=== PATIENT | male | born 1950 | race Caucasian/White ===

== ENCOUNTER → 2018-10-26 15:43 | Outpatient (CLI) | payer MEDICARE, OTHER, SELFPAY ==
--- NOTE | 2018-10-26 10:02 | COLBX_PTH ---
PATIENT: ALCON OSWALD LOC: [facility] U#:[id number] AGE/SX: 74/M ROOM: RE10/26/[address]: Dr. Marky Medina MD : 1950 BED: DIS: SPEC #: [id number] RECD: 10/26/18 15:22 STATUS: CHAYITO BAUTISTA #: [id number] BUFFY: 10/26/18 10:[address]: Marky Medina DEPT: SURGICAL PATHOLOGY RECD BY: Jack Hayden ENTERED: 10/29/18 10:19 SP TYPE: COLON BX OTHR DR: No Primary Care Phys [facility] Tissues: Sigmoid colon biopsy Procedures: Surgery Specimen Level IV HEADER OPERATION: Colonoscopy with polypectomy PRE-OP DIAGNOSIS: Screening TISSUE SUBMITTED: Sigmoid polyp, rule out adenoma MICROSCOPIC DIAGNOSIS Sigmoid polyp, polypectomy: Hyperplastic polyp. SJ:santiago 10/30/18 MICROSCOPIC DESCRIPTION Slides are reviewed. GROSS DESCRIPTION Received in fixative is one container labeled with the patient's name and designated sigmoid polyp. The specimen consists of multiple irregular fragments of light faustin soft tissue that in aggregate measure 1 x 0.5 x 0.1 cm. The specimen is totally submitted in one cassette. / SJ:santiago 10/29/18 TC:1 CPT: 09933
== END ==
PROVIDERS: Referring Provider Internal Medicine Gastroenterology; Visit Provider Internal Medicine Gastroenterology
DX: Z12.11 Encounter for screening for malignant neoplasm of colon (principal); K63.5 Polyp of colon
CPT/HCPCS: 88305

== ENCOUNTER 2018-12-05 07:58 | Day surgery (SDC) | payer MEDICARE, OTHER, SELFPAY ==
[2018-11-28 10:29] VITALS: BP 142/90; PULSE 70; RESP 16; TEMP 36.2; O2SAT 96; BMI 28.8
--- NOTE | 2018-11-28 10:35 | SDCEKG_ITS ---
Test Reason : Blood Pressure : / mmHG Vent. Rate : 066 BPM Atrial Rate : 066 BPM P-R Int : 162 ms QRS Dur : 094 ms QT Int : 388 ms P-R-T Axes : 050 015 041 degrees QTc Int : 406 ms Normal sinus rhythm Possible Left atrial enlargement Borderline ECG Confirmed by VICKIE SOMMERS ([id number]), marketing editor JOE FERRERA ([id number]) on 12/06/2018 9:27:54 AM Referred By: Evan Massey Confirmed By:VICKIE SOMMERS
[2018-11-28 11:11] LABS: Hemoglobin A1c 7.4 % (4.2-6.3)
[2018-11-28 11:23] LABS: Anion Gap 8 (5-15); BUN 14 mg/dL (7-18); BUN/Creat Ratio 12.3 RATIO (10-20); Calcium,Total 9.3 mg/dL (8.5-10.1); Chloride 98 mmol/L (98-107); Creatinine, Serum 1.14 mg/dL (0.70-1.30); EST Glomerular Filtration Rate 68 mL/min (>60); Est Glom Filt Rate - Afr Amer 83 mL/min (>60); Estimated Creatinine Clearance 65.81 ml/min; Glucose 138 mg/dL (74-106); Potassium 4.4 mmol/L (3.5-5.1); Sodium Level 134 mmol/L (136-145); Thyroid Stim Hormone (TSH) 0.71 uIU/mL (0.358-3.74)
[2018-12-05 08:34] VITALS: BP 141/94; PULSE 70; RESP 16; TEMP 36.4; O2SAT 98; BMI 28.8
[2018-12-05 09:01] LABS: Bedside Glucose 156 mg/dL (70-110)
--- NOTE | 2018-12-05 11:25 | DCINST_ITS ---
Discharge Diet: Light diet - advance as tolerated Discharge Activity: May not drive while taking narcotic pain medications. Call your doctor if your incision/area has: Continuous Slow Oozing, Sudden Increased Bleeding, Increased Pain/ Swelling, Increased Redness Suture Line Care: Avoid Pulling/Pushing, Avoid Pinching/Bending Catheter: Song to leg bag, Song to large bag Drain: [place] Allergies/Adverse Reactions: Allergies ciprofloxacin [From Cipro] Allergy (Verified 12/05/18 08:31) numbness of face cefdinir Adverse Reaction (Verified 12/05/18 08:31) Diarrhea gluten Adverse Reaction (Verified 12/05/18 08:31) gluten intolerant lactose Adverse Reaction (Verified 12/05/18 08:31) bloating quinine [From Quine] Adverse Reaction (Verified 12/05/18 08:31) back pain/urinary trouble Medications to take at Discharge Acetaminophen [Tylenol Extra Strength] 500 mg PO Q6H PRN PRN 11/28/18 Ibuprofen 200 mg PO PRN PRN 11/28/18 Levothyroxine [Synthroid] 112 mcg PO SUMOTUTHFRSA 11/28/18 Lisinopril [Zestril] 10 mg PO DAILY 11/28/18 Loratadine [Claritin] 10 mg PO QHS 11/28/18 Metformin HCl 1,000 mg PO QHS 11/28/18 Ranitidine [Zantac] 150 mg PO QHS 11/28/18 Tamsulosin HCl [Flomax] 0.4 mg PO PRN PRN 11/28/18 Primary Care Physician: Shawna Zamora NP-C [Primary Care Provider] - Test Results: Test results from this visit will be discussed in further detail at your follow- up appointment, if applicable. Please Follow Up With: Evan Massey MD When: please call to make an appointment.
[2018-12-05] MEDS: Cefazolin 2 GM in 0.9% Normal Saline 100 ML IV (11:27)
--- NOTE | 2018-12-05 12:50 | PCM.OPRPT ---
Report of Operation Date of Procedure: 12/05/18 Pre-Operative Diagnosis: BPH with obstruction Post-Operative Diagnosis: The same Surgery/Procedure Performed:: Transurethral incision of the prostate using ileum YAG laser Description of Surgical Findings:: Indication this is a 68-year-old male who is obstructive voiding symptoms on cystoscopy was found to have a very high bladder neck very short length prostate minimal obstruction from the lateral lobes mostly obstruction from the bladder neck we attempted procedure in the office but he did not tolerate the procedure so recommended a surgery in the operating room under general anesthesia and we will do a laser incision of the prostate. We talked about the risk of the procedure including bleeding infection formation of scar tissue at the bladder neck of the urethral channel failure to cure urinary symptoms persistent of bother her symptoms after surgery. 68-year-old male taken back to the operating room at the smooth induction of general anesthesia he was placed supine on the table in dorsolithotomy position He was placed in dorsolithotomy position the legs in stirrups the urethra and vaginal area were prepped and draped in usual sterile fashion went into the bladder with a 21 Canadian rigid cystourethroscope I first at the dilate the meatus using the sounds in the table I dilated with a 19 Canadian and 20 Canadian and then was able get a 2020 Canadian scope into the urethra any problems no scar tissues along the urethra some mild very mild annular scar in the mid urethra and then the bulbar urethra is clear the sphincter was intact the the verumontanum was identified he had very minor lateral lobes mostly a high riding bladder neck. I then identified the right ureteral orifice the left ureteral first inspected the bladder there is no tumors or stones within the bladder he did have a fairly stretched out bladder with a heavy trabeculation throughout the bladder from chronic obstruction I then used the thousand laser fiber I started on the prostate at 5 o'clock position I lasered the prostate 5:[address] down to the fibers on the 5:00 of the prostate and then curved back over the the in the U-shaped over the median lobe in the high bladder neck and the laser at the 7 o'[address] position all the way back to the verumontanum and then I shaved off the middle part of the prostate the high bladder neck layer by layer using the laser fiber then I did some of the lasering on the lateral tissue that was causing some mild obstruction finally had opened up the channels had a nice wide open channel from the verumontanum into the bladder neck very nice wide open we did a flow test had a really good flow of urine. Nature all the specks are outside of the and all the tissue was outside I then placed a 20 Canadian catheter into the bladder and patient anesthetic is currently being reversed at the end of the procedure with a nice incision of the prostate and sort of enucleation of the high riding bladder neck to open up a nice channel. Type of Anesthesia:: General Drains: 20 fr becker - Admit VTE Documentation VTE Present on Admission: No VTE Mechan Device Prophylaxis: SCD's
[2018-12-05 13:03] VITALS: BP 134/86; BP 141/94; PULSE 67; RESP 14; TEMP 35.7; O2SAT 97
[2018-12-05 13:15] VITALS: BP 136/81; BP 141/94; PULSE 63; RESP 16; TEMP 35.7; O2SAT 98
[2018-12-05 13:30] VITALS: BP 141/94; BP 147/87; PULSE 66; RESP 16; TEMP 35.8; O2SAT 100
[2018-12-05 13:41] LABS: Bedside Glucose 129 mg/dL (70-110)
[2018-12-05 13:45] VITALS: BP 136/88; BP 141/94; PULSE 63; RESP 16; TEMP 36.3; O2SAT 100
[2018-12-05 14:40] VITALS: BP 141/94
== END 2018-12-05 14:46 | disposition home or self-care (01) ==
LOC: SDC 07:59 → AC 07:59
PROVIDERS: Anesthesiology; Family Provider Nurse Practitioner Family; PCP Nurse Practitioner Family; Referring Provider Urology; Visit Provider Urology
PROC: 0V908ZZ Drainage of Prostate, Via Natural or Artificial Opening Endoscopic (ICD-10-PCS; CPT 52450; principal; 2018-12-05 11:25)
DX: N40.1 Benign prostatic hyperplasia with lower urinary tract symptoms (principal); N13.8 Other obstructive and reflux uropathy; Z79.899 Other long term (current) drug therapy; Z79.84 Long term (current) use of oral hypoglycemic drugs; I10 Essential (primary) hypertension; K21.9 Gastro-esophageal reflux disease without esophagitis; E03.9 Hypothyroidism, unspecified; E11.9 Type 2 diabetes mellitus without complications; E78.00 Pure hypercholesterolemia, unspecified
CPT/HCPCS: 52450; 80048; 82962; 83036; 84443; 93005; J7120; J2405

== ENCOUNTER 2022-02-03 07:59 | Outpatient (CLI) | payer MEDICARE, OTHER, SELFPAY ==
--- NOTE | 2022-02-03 08:06 | MRI_ITS ---
STUDY: MR PELVIS WITH AND WITHOUT CONTRAST (PROSTATE) REASON FOR EXAM: Male, 71 years old. Elevated PSA TECHNIQUE: Standardized multiparametric prostate MRI with T1, T2, DWI/ADC sequences were obtained in 3 orthogonal planes, and dynamic contrast enhancement sequences. IV dotarem contrast material was administered intravenously for the contrast portion of the examination. . COMPARISON: None. FINDINGS: The prostate volume measures 46 mm3. The contours of the prostate gland are lobulated. There is mass effect on the bladder base. The transition zone is heterogenous. PI-RADS DWI score 1 - No abnormality (normal) on ADC or high b-value DWI. PI-RADS T2W score 2 - A mostly encapsulated nodule OR a homogeneous circumscribed nodule without encapsulation (atypical nodule) or a homogeneous mildly hypointense area between nodules.. Contrast enhancement no early or contemporaneous enhancement; or diffuse multifocal enhancement NOT corresponding to a focal finding on T2W and/or DWI or focal ehancement responding to a lesion demonstrating features of BPH onT2WI (including features of extruded BPH in the PZ). The peripheral zone is homogenous. PI-RADS DWI score 1 - No abnormality (normal) on ADC or high b-value DWI. PI-RADS T2W score 1 - Uniformaly hyperintense (normal). Contrast enhancement no early or contemporaneous enhancement; or diffuse multifocal enhancement NOT corresponding to a focal finding on T2W and/or DWI or focal enhancement responding to a lesion demonstrating features of BPH onT2WI (including features of extruded BPH in the PZ). The seminal vesicles demonstrate normal margins and T2 signal pattern. No mass lesion or invasion depicted. The rectoprostatic angles are normal. Urinary bladder is normal without wall thickening. The vascular structures of the are normal. The visualized hollow viscus structures are normal except for sigmoid diverticulosis. No bone marrow edema or mass lesion depicted. MRI/Pelvis W/WO Contrast IMPRESSION: 1. PIRADS v2.1 2019 -- 2 - Low (clinically significant cancer is unlikely). Electronically Signed: Rakesh Romano MD ([place]) at 13:03 EDT Reading Location ID and State: [facility] / [place] , Service support ,
[2022-02-03 08:45] LABS: CREATININE FINGERSTICK 1.2 mg/dL (0.70-1.30); EGFR FINGERSTICK > 60.0000 mL/min (>60)
== END 2022-02-03 23:59 | disposition home or self-care (01) ==
LOC: MRI 08:01
PROVIDERS: PCP Nurse Practitioner Family; Referring Provider Urology; Visit Provider Urology
DX: R97.20 Elevated prostate specific antigen [PSA] (principal)
CPT/HCPCS: 72197; A9575